=== PATIENT | male | born 1975 ===

== ENCOUNTER 2018-02-23 11:19 | Emergency (ER) | payer OTHER ==
[2018-02-23 11:37] VITALS: BP 127/84; PULSE 66; RESP 17; TEMP 98.3; O2SAT 96
[2018-02-23] MEDS ORDERED: Lidocaine 5% Patch TD ONE ×2 (12:23→12:32)
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
== END 2018-02-23 12:35 | disposition home or self-care (01) ==
LOC: C.ER 11:19
DX: S39.012A Strain of muscle, fascia and tendon of lower back, initial encounter (principal); V89.2XXA Person injured in unspecified motor-vehicle accident, traffic, initial encounter
CPT/HCPCS: 96372; 99284; J1885